=== PATIENT | female | born 2000 | race American Indian/Alaskan Native ===

== ENCOUNTER 2020-09-28 17:41 | Emergency (ER) | payer SELFPAY ==
[2020-09-28 18:30] VITALS: BP 151/87
--- NOTE | 2020-09-28 19:03 | Emergency Department Report ---
- General Chief Complaint: Upper Respiratory Infection Stated Complaint: JOSI, STUFFY NOSE Time Seen by Provider: 09/28/20 18:36 Source: patient Mode of arrival: Ambulatory Limitations: No Limitations - History of Present Illness MD Complaint: rhinorrhea, nasal congestion -: days(s) Severity: mild Quality: aching Consistency: constant Worsens With: nothing Associated Symptoms: chills, rhinorrhea, nasal congestion, cough (With mucus production), other (Flareups of asthma and she has run out of her asthma medications for the last few weeks). denies: nausea, vomiting, diarrhea, right sweats, weight loss, epistaxis, hoarseness - Related Data Previous Rx's Medication Instructions Recorded Last Taken Type Albuterol Mdi (or & Nicu Only) 1 puff IH Q4-6H PRN #1 inha 09/28/20 Unknown Rx [ProAir HFA Inhaler] Azithromycin [Zithromax] 500 mg PO QDAY #3 tablet 09/28/20 Unknown Rx Benzonatate [Tessalon Perles] 100 mg PO Q8HR #20 capsule 09/28/20 Unknown Rx predniSONE [Deltasone] 50 mg PO QDAY #5 tab 09/28/20 Unknown Rx Allergies Allergy/AdvReac Type Severity Reaction Status Date / Time No Known Allergies Allergy Unverified 09/28/20 18:30 ED Review of Systems ROS: Stated complaint: JOSI, STUFFY NOSE Other details as noted in HPI Comment: All other systems reviewed and negative ED Past Medical Hx - Past Medical History Previous Medical History?: Yes Hx Asthma: Yes - Social History Smoking Status: Never Smoker Substance Use Type: None - Medications Home Medications: Home Medications Medication Instructions Recorded Confirmed Last Taken Type Albuterol Mdi (or & Nicu Only) 1 puff IH Q4-6H PRN #1 inha 09/28/20 Unknown Rx [ProAir HFA Inhaler] Azithromycin [Zithromax] 500 mg PO QDAY #3 tablet 09/28/20 Unknown Rx Benzonatate [Tessalon Perles] 100 mg PO Q8HR #20 capsule 09/28/20 Unknown Rx predniSONE [Deltasone] 50 mg PO QDAY #5 tab 09/28/20 Unknown Rx ED Physical Exam - General Limitations: No Limitations General appearance: alert, in no apparent distress - Head Head exam: Present: atraumatic, normocephalic - Eye Eye exam: Present: normal appearance - ENT ENT exam: Present: mucous membranes moist, other (Nasal congestion bilaterally with heavy nasal drainage and posterior pharyngeal drainage as well. Airway is patent tongue and uvula are midline no exudate.) - Neck Neck exam: Present: normal inspection, full ROM - Respiratory Respiratory exam: Present: rhonchi. Absent: respiratory distress, wheezes, accessory muscle use, decreased breath sounds - Cardiovascular Cardiovascular Exam: Present: regular rate, normal rhythm. Absent: systolic murmur, diastolic murmur, rubs, gallop - GI/Abdominal GI/Abdominal exam: Present: soft, normal bowel sounds - Extremities Exam Extremities exam: Present: normal inspection - Back Exam Back exam: Present: normal inspection - Neurological Exam Neurological exam: Present: alert, oriented X3 - Psychiatric Psychiatric exam: Present: normal affect, normal mood - Skin Skin exam: Present: warm, dry, intact, normal color. Absent: rash ED Course Vital Signs 09/28/20 18:24 Temperature 98.5 F Pulse Rate 108 H Respiratory 18 Rate Blood Pressure 151/87 O2 Sat by Pulse 98 Oximetry ED Medical Decision Making - Medical Decision Making This patient presents with acute cough, most consistent with bronchitis/URI/viral syndrome differential diagnosis includes asthma, pneumonia, viral syndrome, COVID-19 presentation not consistent with acute bacterial pneumonia, influenza, asthma, transient airway hyperresponsiveness. Presentation not consistent with chronic causes of cough (including GERD, asthma, postnasal discharge, medication side effect, CHF, lung cancer or mass). Plan: , supportive care, reassess Critical care attestation.: If time is entered above; I have spent that time in minutes in the direct care of this critically ill patient, excluding procedure time. ED Disposition Clinical Impression: Cough, Bronchitis Disposition: [id number] TO HOME OR SELFCARE Is pt being admited?: No Does the pt Need Aspirin: No Condition: Stable Instructions: Chronic Bronchitis (ED), How to Use a Dry Powder Inhaler, Cough, Adult, Upper Respiratory Infection, Adult, [id number], Cool Mist Vaporizer, Acute Bronchitis, Adult, COVID-19 Frequently Asked Questions, COVID-19: How to Protect Yourself and Others - [facility] Referrals: [facility] [Provider Group] - 3-5 Days
== END 2020-09-28 20:06 | disposition home or self-care (01) ==
LOC: ED 17:41
DX: J40 Bronchitis, not specified as acute or chronic (principal); R05 Cough; Z79.899 Other long term (current) drug therapy
CPT/HCPCS: 99282